=== PATIENT | male | born 1990 | race Caucasian/White ===

== ENCOUNTER → 2017-03-10 | Outpatient (CLI) | payer BC ==
[~2017-03-10] MED LIST: NO HOME MEDICATIONS; ZITHROMAX 250M250 MG PO
== END ==
LOC: COL.RAD 09:32
DX: K82.4 Cholesterolosis of gallbladder (principal); R16.1 Splenomegaly, not elsewhere classified; R14.0 Abdominal distension (gaseous)

== ENCOUNTER → 2018-12-29 | Outpatient (CLI) | payer BC | LOC: COL.RAD 13:55 | DX: N50.3 Cyst of epididymis (principal) ==